=== PATIENT | female | born 1990 | race Two or more races ===

== ENCOUNTER 2016-10-20 23:37 | Emergency (ER) | payer OTHER ==
[~2016-10-20] VITALS: Ht 160 cm; Wt 59.0 kg
[~2016-10-20 23:37] MED LIST: ALBU8.5H2; METO5TAB2; ONDA-25; PREN1TAB33
[2016-10-20 23:40] VITALS: BP 141/49
[2016-10-21] MEDS ORDERED: ALBUTEROL FS 2.5 MG/3 ML VIAL.NEB ONE (00:28)
[2016-10-21] MEDS ORDERED: DEXAMETHASONE SOD PHOSPHATE 10 MG/ML VIAL ONE (00:28)
[2016-10-21] MEDS ORDERED: DEXAMETHASONE SOD PHOSPHATE 10 MG/ML VIAL IV ONE (00:30)
[2016-10-21] MEDS ORDERED: ALBUTEROL FS 2.5 MG/3 ML VIAL.NEB CONTNEB ONE (00:30)
--- NOTE | 2016-10-21 00:37 | NUR ---
RT AT BEDSIDE FOR BREATHING TX.
--- NOTE | 2016-10-21 01:15 | NUR ---
Patient discharged to home in stable condition. Written and verbal after care instructions given. Patient verbalizes understanding of instruction AND RX. PT AMBULATED OUT WITH A STEADY GAIT. VSS.
== END 2016-10-21 01:18 | disposition home or self-care (01) ==
LOC: ER 23:37
DX: J45.901 Unspecified asthma with (acute) exacerbation (principal); J06.9 Acute upper respiratory infection, unspecified
CPT/HCPCS: A4606; J1100; Z7610

== ENCOUNTER 2018-01-22 06:30 | Emergency (ER) | payer SELFPAY ==
[~2018-01-22] VITALS: Ht 157.5 cm; Wt 67.1 kg
[~2018-01-22 06:30] MED LIST changes: -ALBU8.5H2; +ALBU8.5H8; -ONDA-25; +ONDA4TAB10
--- NOTE | 2018-01-22 06:40 | NUR ---
27 YO female bib self. patient is alert and oriented, c/o pelvic pain, non radiating 7/10 cramping like since yesterday. patient ambulated to er bed, skin warm and dry, resp even and unlabored. patient gowned, placed on monitor and storage bin tender. awaiting orders from provider, will continue to monitor
[2018-01-22] MEDS ORDERED: IBUPROFEN 600 MG TABLET PO ONE ×2 (06:55→07:00)
[2018-01-22] MEDS ORDERED: ACETAMINOPHEN ES 500 MG TABLET ONE (06:55)
--- NOTE | 2018-01-22 06:55 | NUR ---
urine sample obtained and sent to lab
[2018-01-22] MEDS ORDERED: ACETAMINOPHEN ES 500 MG TABLET PO ONE (07:00)
--- NOTE | 2018-01-22 07:04 | NUR ---
donor services technician at bed side for blood draw
[2018-01-22 07:12] LABS: APPEARANCE,URINE CLOUDY (CLEAR); BILIRUBIN,URINE NEGATIVE (NEGATIVE); BLOOD, URINE NEGATIVE Ery/uL (NEGATIVE); COLOR,URINE YELLOW (YELLOW); KETONES,URINE NEGATIVE (NEGATIVE); LEUKOCYTE ESTERASE ,URINE NEGATIVE (NEGATIVE); NITRITE, URINE NEGATIVE (NEGATIVE); PH,URINE 7.5 (5.0-8.0); PROTEIN,URINE NEGATIVE (NEGATIVE); UGLUCOSE NEGATIVE (NEGATIVE); UROBILINOGEN,URINE 0.2 EU/dL (0.2)
[2018-01-22 07:16] LABS: BASOPHILS % (AUTO) 0.5 % (0.0-2.0); EOSINOPHILS % (AUTO) 1.6 % (0.0-6.0); HEMATOCRIT 42 % (33-45); HEMOGLOBIN 14.3 g/dL (11.5-14.8); LYMPHOCYTES # (AUTO) 2.2 /CMM (0.8-4.8); LYMPHOCYTES % (AUTO) 23.4 % (20.0-44.0); MEAN CORPUSCULAR HEMOGLOBIN 30 PG (26.0-33.0); MEAN CORPUSCULAR HGB CONC 34 g/dl (31.0-36.0); MEAN CORPUSCULAR VOLUME 89 fL (82-100); MONOCYTES # (AUTO) 0.6 /CMM (0.1-1.30); MONOCYTES % (AUTO) 6.7 % (2.0-12.0); NEUTROPHILS # (AUTO) 6.2 /CMM (1.8-8.9); NEUTROPHILS % (AUTO) 67.8 % (43.0-81.0); PLATELET COUNT (AUTO) 346 /CMM (150-450); RDW COEFFICIENT OF VARIATION 12.6 (11.5-15.0); RED BLOOD CELL COUNT(AUTO) 4.78 MIL/uL (4.0-5.2); WHITE BLOOD COUNT (AUTO) 9.2 K/uL (4.3-11.0)
[2018-01-22 07:17] LABS: RBC,URINE NONE SEEN /HPF (0-2); WBC,URINE NONE SEEN /HPF (0-3)
[2018-01-22 07:18] LABS: BACTERIA,URINE Few /HPF (None Seen); SQUAMOUS EPITHELIAL CELL,UR Few /HPF (None Seen); URINE AMORPHOUS PHOSPHATES Moderate /HPF (None Seen)
[2018-01-22 07:20] LABS: CALCIUM, SERUM 8.9 mg/dL (8.5-10.1); CREATININE 0.9 mg/dL (0.6-1.3); POTASSIUM 3.2 mmol/L (3.5-5.1)
--- NOTE | 2018-01-22 08:57 | NUR ---
Patient discharged to home in stable condition. Written and verbal after care instructions given. Patient verbalizes understanding of instruction.
[2018-01-22 09:08] VITALS: BP 115/69
== END 2018-01-22 09:08 | disposition home or self-care (01) ==
LOC: ER 06:31
DX: R10.2 Pelvic and perineal pain (principal); J45.909 Unspecified asthma, uncomplicated
CPT/HCPCS: 36415; 76856; 80048; 81001; 84703; 85025; 99285; A4606; Z7610; 81000-TC; J7030

== ENCOUNTER 2018-03-10 02:12 | Emergency (ER) | payer MEDICAID ==
[~2018-03-10] VITALS: Ht 157.5 cm; Wt 64.9 kg
[2018-03-10 02:20] VITALS: BP 96/62
[2018-03-10] MEDS ORDERED: ALBUTEROL FS 2.5 MG/3 ML VIAL.NEB ONE (02:53)
[2018-03-10] MEDS ORDERED: ALBUTEROL FS 2.5 MG/0.5 ML VIAL.NEB NEB ONE (03:00)
== END 2018-03-10 03:30 | disposition home or self-care (01) ==
LOC: ER 02:17
DX: J45.909 Unspecified asthma, uncomplicated (principal)
CPT/HCPCS: 71045; 94640; 99283; A4606; Z7610

== ENCOUNTER 2019-06-15 10:25 | Emergency (ER) | payer MEDICAID, OTHER ==
[~2019-06-15] VITALS: Ht 157.5 cm; Wt 61.2 kg
[2019-06-15 10:29] VITALS: BP 104/55
--- NOTE | 2019-06-15 10:30 | NUR ---
SEEN AND EXAMINED BY
[2019-06-15 10:37] LABS: APPEARANCE,URINE Slightly Cloudy (CLEAR); BILIRUBIN,URINE Negative (NEGATIVE); BLOOD, URINE Small Ery/uL (NEGATIVE); COLOR,URINE Yellow (YELLOW); KETONES,URINE Negative (NEGATIVE); LEUKOCYTE ESTERASE ,URINE Small (NEGATIVE); NITRITE, URINE Positive (NEGATIVE); PROTEIN,URINE Negative (NEGATIVE); UGLUCOSE 100 MG/DL mg/dL (NEGATIVE)
[2019-06-15 10:56] LABS: WBC,URINE 21-50 /HPF (0-3)
[2019-06-15 10:57] LABS: BACTERIA,URINE Few /HPF (None Seen); MUCUS,URINE Moderate /LPF (None Seen); SQUAMOUS EPITHELIAL CELL,UR Few /HPF (None Seen)
[2019-06-15] MEDS ORDERED: NITROFURANTOIN/NITROFURAN MAC 100 MG CAPSULE PO ONE (11:30)
[2019-06-15] MEDS ORDERED: PHENAZOPYRIDINE HCL 200 MG TABLET PO ONE (11:30)
--- NOTE | 2019-06-15 11:44 | NUR ---
Patient discharged to home in stable condition. Written and verbal after care instructions given. Patient verbalizes understanding of instruction.
== END 2019-06-15 11:45 | disposition home or self-care (01) ==
LOC: ER 10:25
DX: N39.0 Urinary tract infection, site not specified (principal); J45.909 Unspecified asthma, uncomplicated; Z79.899 Other long term (current) drug therapy
CPT/HCPCS: 81000-TC; 84703-TC; 87086-TC; 87186-TC

== ENCOUNTER 2021-02-26 12:23 | Emergency (ER) | payer OTHER ==
[~2021-02-26] VITALS: Ht 157.5 cm; Wt 61.2 kg
[~2021-02-26 12:23] MED LIST changes: +ONDA-97; -ONDA4TAB10
[2021-02-26 12:31] VITALS: BP 114/72
--- NOTE | 2021-02-26 12:35 | NUR ---
PT SEEN AND EXAMINED BY .
--- NOTE | 2021-02-26 12:45 | NUR ---
Patient discharged to home in stable condition. Written and verbal after care instructions given. Patient verbalizes understanding of instruction.
--- NOTE | 2021-02-26 12:45 | NUR ---
COVID SPECIMEN OBTAINED AND SENT TO LAB.
== END 2021-02-26 12:47 | disposition home or self-care (01) ==
LOC: ER 12:30
DX: B34.9 Viral infection, unspecified (principal); Z20.822 Contact with and (suspected) exposure to COVID-19; J45.909 Unspecified asthma, uncomplicated
CPT/HCPCS: 87426; 99283; C9803

== ENCOUNTER 2021-04-04 15:01 | Emergency (ER) | payer OTHER ==
[~2021-04-04] VITALS: Ht 157.5 cm; Wt 61.2 kg
[2021-04-04 15:27] VITALS: BP 132/65
[2021-04-04] MEDS ORDERED: CEPH500T PO (15:59)
[2021-04-04] MEDS ORDERED: SULF1TAB48 PO (15:59)
== END 2021-04-04 16:06 | disposition home or self-care (01) ==
LOC: ER 15:08
DX: L72.3 Sebaceous cyst (principal); J45.909 Unspecified asthma, uncomplicated; Z79.899 Other long term (current) drug therapy

== ENCOUNTER 2022-04-15 17:48 | Emergency (ER) | payer OTHER ==
[~2022-04-15] VITALS: Ht 157.5 cm; Wt 70.3 kg
[~2022-04-15 17:48] MED LIST changes: +CEPH500T PO; +SULF1TAB48 PO
[2022-04-15 18:10] VITALS: BP 114/88
--- NOTE | 2022-04-15 18:25 | NUR ---
RECVED PT 31 YRS FEMALE CAME FROM HOME LMP 03/07/22 [facility] [place].BLEEDING
[2022-04-15] MEDS ORDERED: METOCLOPRAMIDE HCL 10 MG/2 ML VIAL IV ONE (18:30)
[2022-04-15] MEDS ORDERED: IV NS 0.9% 1,000 ML BAG IV ONE (18:30)
[2022-04-15] MEDS ORDERED: METOCLOPRAMIDE HCL 10 MG/2 ML VIAL ONE (19:08)
--- NOTE | 2022-04-15 19:35 | NUR ---
HAND OFF ALFREDO FORTE
[2022-04-15 19:47] LABS: CALCIUM, SERUM 8.7 mg/dL (8.5-10.1); CREATININE 0.6 mg/dL (0.6-1.3); POTASSIUM 3.2 mmol/L (3.5-5.1)
[2022-04-15 19:57] LABS: BASOPHILS # (AUTO) 0.1 K/uL (0.0-0.2); BASOPHILS % (AUTO) 0.9 % (0.0-2.0); EOSINOPHILS % (AUTO) 2.3 % (0.0-6.0); HEMATOCRIT 39 % (33-45); HEMOGLOBIN 13.5 g/dL (11.5-14.8); LYMPHOCYTES # (AUTO) 1.9 K/uL (0.8-4.8); LYMPHOCYTES % (AUTO) 16.8 % (20.0-44.0); MEAN CORPUSCULAR HGB CONC 35 g/dl (31.0-36.0); MEAN CORPUSCULAR VOLUME 88 fL (82-100); MONOCYTES # (AUTO) 1.1 K/uL (0.1-1.30); MONOCYTES % (AUTO) 9.9 % (2.0-12.0); NEUTROPHILS # (AUTO) 7.8 K/uL (1.8-8.9); NEUTROPHILS % (AUTO) 70.1 % (43.0-81.0); PLATELET COUNT (AUTO) 363 K/uL (150-450); RED BLOOD CELL COUNT(AUTO) 4.42 MIL/uL (4.0-5.2); WHITE BLOOD COUNT (AUTO) 11.1 K/uL (4.3-11.0)
--- NOTE | 2022-04-15 19:58 | NUR ---
Patient eloped from facility. ER MD notified.
[2022-04-15 20:11] LABS: ALBUMIN 3.5 g/dL (3.4-5.0); BILIRUBIN,DIRECT 0.1 mg/dL (0.0-0.2); BILIRUBIN,TOTAL 0.6 mg/dL (0.2-1.0)
== END 2022-04-15 20:03 | disposition left against medical advice (07) ==
LOC: ER 17:52
DX: O26.891 Other specified pregnancy related conditions, first trimester (principal); R11.2 Nausea with vomiting, unspecified; R10.9 Unspecified abdominal pain; Z3A.01 Less than 8 weeks gestation of pregnancy; J45.909 Unspecified asthma, uncomplicated; Z79.899 Other long term (current) drug therapy
CPT/HCPCS: 99284; 96374; 76805; 96361; 85025; 80048; 80076; 86850; 84702; J2765; J7030